=== PATIENT | male | born 1945 | race Caucasian/White ===

== ENCOUNTER → 2016-11-02 | Day surgery (SDC) | payer OTHER ==
[~2016-11-02] MED LIST: CARB1TAB52 PO; CHLORHEXIDINE GLUCONATE 2 % 1 PACK (2 CLOTHS) TOPICAL PRN; DO NOT ADM ANY ANTICOAGULANT DRUGS PRN; EPINEPHrine HCL (1:1000) 1 MG/ML VIAL ONE; INSULIN HUMAN REGULAR 1,000 UNITS/10 ML VIAL SQ PRN; LACTATED RINGER'S 1000 ML IV PRN; LIDOCAINE HCL 2% 50 ML VIAL ONE; METOPROLOL TARTRATE 25 MG TAB PO PRN; ONDANSETRON HCL 4 MG/2 ML VIAL IV PUSH ONE; PROPOFOL 200 MG/20 ML AMP IV ONE; SODIUM CHLORID 0.9% 500 ML IV PRN; SODIUM CHLORIDE 0.9% 20 ML VIAL ONE; TAMS5CAP PO
[2016-11-02 05:45] VITALS: BP 168/70; PULSE 52; RESP 19; TEMP 98.4; O2SAT 100
[2016-11-02 07:04] LABS: AUTOMATED NEUTROPHIL # 3.7 TH/MM3 (1.8-7.7); BASOPHIL # 0.1 TH/MM3 (0-0.2); BASOPHIL % 0.9 % (0.0-2.0); EOSINOPHIL # 0.2 TH/MM3 (0-0.4); HEMO FLAGS DIFF FINAL; LYMPH % 25.6 % (9.0-44.0); LYMPHOCYTE # 1.7 TH/MM3 (1.0-4.8); MEAN CELL VOLUME 91.5 FL (80.0-100.0); MEAN CORPUSCULAR HGB CONC 32.8 % (32.0-36.0); MONO % 13.4 % (0.0-8.0); NEUT % 57.1 % (16.0-70.0); PLATELET COUNT 133 TH/MM3 (150-450); RED BLOOD COUNT 4.16 MIL/MM3 (4.50-5.90); RED CELL DISTRIBUTION WIDTH 16.3 % (11.6-17.2); WHITE BLOOD COUNT 6.5 TH/MM3 (4.0-11.0)
[2016-11-02 07:13] LABS: APTT (PATIENT) 28.2 SEC (24.3-30.1); PROTHROMBIN TIME - PATIENT 11.3 SEC (9.8-11.6)
--- NOTE | 2016-11-02 09:02 | MR ---
cc: EARLENE HENAO M.D. DATE 11/02/2016 PROCEDURE Fiberoptic bronchoscopy flexible REASON FOR BRONCHOSCOPY Bilateral lung nodules, rule out underlying malignancy, rule out chronic inflammatory process. PROCEDURE Fiberoptic bronchoscopy performed via LMA. Vocal cords intact. Trachea severely hyperemic. Dariela sharp. Thick mucous plugs creamy whitish in color throughout the tracheobronchial tree noted. All mucous plugs were removed. The tracheal bronchial tree overall is markedly hyperemic. The draiela is sharp. The right mainstem bronchus. The right upper, middle and lower lobes, the left upper and lower lobes are without obstruction or mass lesion. Washings were obtained from both sides of the tracheobronchial tree for routine TB, fungal culture, as well as cytological exam. Cytological brush biopsies left lower lung obtained as well which was somewhat more hyperemic than the rest of the tracheobronchial tree sent for cytological exam. The procedure was well tolerated. The patient transferred to recovery in stable condition. IMPRESSION 1. Severe tracheobronchitis 2. Excess mucoid secretion and plugging. 3. No endobronchial obstruction or mass lesion. 4. Samples obtained as above. 5. Procedure well tolerated. The patient transferred to recovery in stable condition. Earlene Henao MD WWW/JOE /8:10 AM /8:49 AM
[2016-11-02 10:35] VITALS: BP 118/73; PULSE 53; RESP 16; TEMP 97.6; O2SAT 99
--- NOTE | 2016-11-02 19:03 | EKG ---
Date Performed: 11/02/2016 Time Performed: 06:39:41 PTAGE: 71 years EKG: Sinus rhythm with premature atrial beat abberantly conducted PROLONGED QT INTERVAL ABNORMAL ECG NO PREVIOUS TRACING DOCTOR: Juanito Monae Interpretating Date/Time 11/02/2016 19:02:44
== END | disposition home or self-care (01) ==
LOC: HSDC 05:30
PROVIDERS: ATTEND Internal Medicine Sleep Medicine
DX: J40 Bronchitis, not specified as acute or chronic (principal); R91.8 Other nonspecific abnormal finding of lung field; R94.31 Abnormal electrocardiogram [ECG] [EKG]
CPT/HCPCS: 00520; 31622; 85025; 85610; 85730; 88112; 88305; 93005; J0171; J2405; J7120